=== PATIENT | female | born 1950 | race Caucasian/White ===

== ENCOUNTER 2016-06-18 08:21 | Inpatient (IN) | payer OTHER ==
[2016-06-14 10:20] LABS: MANUAL DIFF NEEDED? NO; URINE SOURCE VOIDED
[2016-06-14 10:23] LABS: BASO% 0.5 % (0.0-0.8); EOS# 0.17 X1000 (0.0-0.7); EOS% 1.2 % (0.0-10.0); HEMATOCRIT 41.1 % (37.0-47.0); HEMOGLOBIN 13.7 g/dL (12.0-16.0); IMM GRAN# 0.12 X1000 (0.0-0.04); IMM GRAN% 0.9 % (0.0-0.5); LYMPH# 4.09 X1000 (1.2-3.4); MCH 28.8 PG (27-31); MCHC 33.3 g/dL (33-37); MCV 86.3 FL (81-99); MONO# 1.23 X1000 (0.11-0.59); MONO% 8.7 % (1.7-9.3); NEUT% 59.7 % (42.2-75.2); PLT 407 X1000 (130-400); RBC 4.76 XMIL (4.2-5.4)
[2016-06-14 10:35] LABS: BILIRUBIN URINE NEGATIVE (NEGATIVE); BLOOD URINE NEGATIVE (NEGATIVE); CLARITY CLEAR (CLEAR); COLOR YELLOW; GLUCOSE URINE NEGATIVE (NEGATIVE); LEUKOCYTES URINE 2+ (NEGATIVE); NITRITE URINE NEGATIVE (NEGATIVE); PH URINE 6.5; PROTEIN URINE NEGATIVE (NEGATIVE); SP GRAVITY URINE 1.015; URINE MICROSCOPIC NEEDED? YES; UROBILINOGEN URINE NORMAL
[2016-06-14 10:37] LABS: URINE EPITHELIAL CELLS >10 /HPF (<10)
--- NOTE | 2016-06-15 12:23 | HISTORY AND PHYSICAL ---
DATE OF PLANNED PROCEDURE: 06/18/2016. PREOPERATIVE DIAGNOSIS: Uterine prolapse. SECONDARY DIAGNOSES: 1. Hypothyroidism. 2. Hypertension. 3. Adult-onset diabetes. CONDITION: Stable. HISTORY OF PRESENT ILLNESS: Ms. Art is a 66-year-old 4, para 4 who has experienced the above problems over the past few years. She has refused use of pessaries. States that she does not have any urinary difficulty, has been previously evaluated by Dr. Matta for the same problem, and mesh had been discussed; however, she is uncomfortable with this and desires to proceed with [place] tissue. PAST MEDICAL HISTORY: Significant for hypertension, hypothyroidism, and adult diabetes. PAST SURGICAL HISTORY: Tubal ligation. She has had 4 previous vaginal deliveries. ALLERGIES: She has no known drug allergies. MEDICATIONS: Norvasc 10 mg, Synthroid 50 mcg, metformin 500 extended release daily. FAMILY HISTORY: Noncontributory. SOCIAL HISTORY: She denies tobacco, alcohol, or drug use. PHYSICAL EXAMINATION: VITAL SIGNS: Blood pressure 128/82, weight 166, height 64, giving a BMI of 28.49. GENERAL: She is alert and cooperative, in no distress. NECK: Supple. LUNGS: Clear. HEART: Regular sinus rhythm. ABDOMEN: Soft. PELVIC: Uterine prolapse. EXTREMITIES: No cyanosis, clubbing, or edema in her extremities. ASSESSMENT: As above. PLAN: Vaginal hysterectomy with [place] tissue repair, uterosacral plication, and also tacking the pubocervical fascia back to the cuff, possibly posterior repair. The patient states understanding risks and desires to proceed.
[2016-06-18 07:40] LABS: URINE MICROSCOPIC NEEDED? NO; URINE SOURCE CATH
[2016-06-18 07:46] LABS: BILIRUBIN URINE NEGATIVE (NEGATIVE); BLOOD URINE NEGATIVE (NEGATIVE); CLARITY CLEAR (CLEAR); COLOR YELLOW; GLUCOSE URINE NEGATIVE (NEGATIVE); LEUKOCYTES URINE NEGATIVE (NEGATIVE); NITRITE URINE NEGATIVE (NEGATIVE); PROTEIN URINE NEGATIVE (NEGATIVE); UROBILINOGEN URINE NORMAL
[~2016-06-18 08:21] MED LIST: CLAVE SECONDARY SET 11953 ONE; D10W 500 ML ONE; DIPRIVAN 1% ONE; EPHEDRINE ONE; FENTANYL ONE; KEFZOL 1 GM/D5W 50 ML ONE; METROGEL-VAGINAL 0.75% GEL ONE; VERSED ONE; XYLOCAINE 1%/EPI 1:100,000 ONE
[2016-06-18] MEDS ORDERED: ZOFRAN IV PRN ×2 (08:33→10:24)
[2016-06-18] MEDS ORDERED: NORCO-10 PO PRN (08:33)
[2016-06-18] MEDS ORDERED: NORCO-5 PO PRN (08:33)
--- NOTE | 2016-06-18 09:07 | OPERATIVE NOTE ---
PROCEDURE DATE : 06/18/2016 PREOPERATIVE DIAGNOSIS: Uterine prolapse. POSTOPERATIVE DIAGNOSIS: Uterine prolapse. PROCEDURE PERFORMED: Vaginal hysterectomy with uterosacral plication and attachment of the pubocervical fascia to the uterosacrals. ESTIMATED BLOOD LOSS: 50 mL. SURGEON: Dr. Salvador Vasquez ADOLESCENT COORDINATOR: Dr. Can Matta ANESTHESIA: General endotracheal with Dr. Bertrand. POSITION: Dorsal lithotomy. FLUIDS: None replaced. PATHOLOGY: Uterus. FINDINGS: As above plus good urine output from both ureteral openings into the bladder per cystoscope. Min catheter in place and vag pack with Metrogel on it. INDICATION: Ms. Art is a 66-year-old 4, para 4, with the above diagnosis. She did not desire any obliterative procedures or mesh material. She desired using [place] tissue and the simplest procedures possible. I discussed the risk of failure. The patient states understanding. All questions answered. DESCRIPTION OF PROCEDURE: She was brought to the operating room and placed under general endotracheal anesthesia, prepped and draped in the dorsal lithotomy position. The bladder was drained of 300 mL of clear urine. A weighed speculum was placed. Anterior lip of the cervix was grasped with a Israel clamp, and a cut was made from 9 to 3 after injecting 10 mL of 0.25% Marcaine with epinephrine to hydrodissect the bladder off. Once the pubocervical space was entered, I had difficulty finding the peritoneum. So at this point, the posterior vagina was tented out with an Allis clamp, and a cut was made, entering the peritoneum posteriorly. The posterior cuff was then stitched with 2 interrupted stitches of 0 Vicryl popoff [id number]. A goose bill was placed. Dissection was completed anteriorly, and the peritoneum was entered anteriorly. Then using curved clamp, it was clamped, cut and sutured ligated until the specimen was removed. At this point, 2-0 Maxon stitches were placed in the uterosacrals from near to far. Then starting with the far, the needle which had been left in place, was put through the pubocervical fascia and then tied down. Then the middle one was put through the pubocervical fascia and then tied down. Then the third uterosacral plication stitch was put through the pubocervical fascia and was tied down. At this point, the cystoscopy was done using D10. No injury to the bladder was noted. No stitches were noted and good urine output from both ureters. So at this point, the cuff was closed with figure- of-eight stitches of 0 Polysorb. Min was placed, and the vagina was packed with the aforementioned pack. She was taken down from dorsal lithotomy, awakened and taken to the recovery room in stable condition.
[2016-06-18] MEDS ORDERED: PHENERGAN ONE (09:27)
[2016-06-18] MEDS ORDERED: MORPHINE PCA ONE (10:09)
[2016-06-18] MEDS ORDERED: BENADRYL IV PRN (10:24)
[2016-06-18] MEDS ORDERED: SODIUM CHLORIDE 0.9% INJ PRN (10:24)
[2016-06-18] MEDS ORDERED: NARCAN IV PRN (10:24)
[2016-06-18] MEDS: GLUCOPHAGE PO SCH (10:24)
[2016-06-18] MEDS ORDERED: HYDROXYZINE PO PRN (10:24)
[2016-06-18] MEDS ORDERED: MORPHINE PCA IV PRN (10:24)
[2016-06-18] MEDS ORDERED: LR 1,000 ML IV SCH (10:24)
[2016-06-18] MEDS ORDERED: NARCAN 0.4 MG in LR 1,000 ML IV PRN (10:24)
[2016-06-18] MEDS ORDERED: PHENERGAN IV PRN (10:24)
[2016-06-18] MEDS: PERIDEX MT SCH ×2 (10:25→20:48)
[2016-06-18] MEDS: COLACE PO SCH ×2 (10:26→20:47)
[2016-06-18] MEDS: LR 1,000 ML IV SCH ×2 (10:39→17:49)
[2016-06-18] MEDS: NORVASC PO SCH (10:52)
[2016-06-18] MEDS ORDERED: DECADRON ONE (14:00)
[2016-06-18] MEDS ORDERED: ZEMURON ONE (14:00)
[2016-06-18] MEDS ORDERED: BREVIBLOC ONE (14:00)
[2016-06-18] MEDS ORDERED: XYLOCAINE-MPF 2% ONE (14:00)
[2016-06-18] MEDS ORDERED: ROBINUL ONE (14:00)
[2016-06-18] MEDS ORDERED: NEOSTIGMINE ONE (14:00)
[2016-06-18] MEDS ORDERED: ZOFRAN ONE (14:00)
[2016-06-18] MEDS ORDERED: TORADOL ONE (14:00)
[2016-06-18] MEDS: TORADOL IV SCH ×2 (14:10→20:48)
[2016-06-18] MEDS: SYNTHROID PO SCH (17:13)
[2016-06-19] MEDS: LR 1,000 ML IV SCH (01:26)
[2016-06-19] MEDS: TORADOL IV SCH (02:54)
[2016-06-19 05:55] LABS: MANUAL DIFF NEEDED? NO
[2016-06-19 06:08] LABS: BASO% 0.1 % (0.0-0.8); EOS# 0.05 X1000 (0.0-0.7); EOS% 0.3 % (0.0-10.0); HEMATOCRIT 36.1 % (37.0-47.0); HEMOGLOBIN 11.6 g/dL (12.0-16.0); IMM GRAN# 0.09 X1000 (0.0-0.04); IMM GRAN% 0.5 % (0.0-0.5); LYMPH# 4.88 X1000 (1.2-3.4); MCH 28.3 PG (27-31); MCHC 32.1 g/dL (33-37); MONO# 1.88 X1000 (0.11-0.59); MPV 10.8 FL (7.4-10.4); NEUT% 63.1 % (42.2-75.2); PLT 384 X1000 (130-400)
[2016-06-19] MEDS: SYNTHROID PO SCH (06:28)
[2016-06-19] MEDS: GLUCOPHAGE PO SCH ×2 (07:24→09:09)
[2016-06-19] MEDS: PERIDEX MT SCH (09:08)
[2016-06-19] MEDS: COLACE PO SCH (09:08)
[2016-06-19] MEDS: NORVASC PO SCH (09:09)
[2016-06-19 11:18] VITALS: BP 142/70
[2016-06-19] MEDS ORDERED: TORADOL PO SCH (14:23)
--- NOTE | 2016-06-19 20:42 | DISCHARGE SUMMARY ---
ADMISSION DATE: 06/18/2016 DISCHARGE DATE: 06/19/2016 ADMISSION DIAGNOSIS: Uterine prolapse. DISCHARGE DIAGNOSIS: Uterine prolapse. PROCEDURE: Transvaginal hysterectomy with uterosacral plication. PHYSICIAN: Salvador Vasquez M.D. CONDITION: Stable. DIET: As tolerated. ACTIVITY: No heavy lifting. Frequent rest. MEDICATIONS: Deville for pain. She is to continue her medications for chronic medical problems of diabetes, hypothyroidism and hypertension. FOLLOWUP: She is to follow up in 2 weeks. HOSPITAL COURSE: Please refer to Ms. Art's H and P, and operative note. She is postop day 1 doing great, tolerating p.o. She had a bowel movement. She has voided without difficulty. She is desiring discharge. Her vital signs are stable. She is afebrile. Physical examination was within normal limits. Very little vaginal bleeding. We will discharge with above instructions.
== END 2016-06-19 12:30 | disposition other institution (70) | DRG 743 ==
LOC: P.WCMS 08:21 → P.WC 08:22 → P.WCMS 06-19 12:30 → P.WC 06-19 12:30
PROVIDERS: ADMIT Obstetrics & Gynecology; ATTEND Obstetrics & Gynecology
PROC: 0UT97ZZ Resection of Uterus, Via Natural or Artificial Opening (ICD-10-PCS; principal; 2016-06-18 06:53)
PROC: 0USGXZZ Reposition Vagina, External Approach (ICD-10-PCS; 2016-06-18 06:53)
DX: N81.4 Uterovaginal prolapse, unspecified (principal); I10 Essential (primary) hypertension; E03.9 Hypothyroidism, unspecified; E11.9 Type 2 diabetes mellitus without complications; Z79.899 Other long term (current) drug therapy; Z79.84 Long term (current) use of oral hypoglycemic drugs
CPT/HCPCS: 36415; 81001; 82948; 85025; 86850; 86900; 86901; 94799; J0690; J1100; J1885; J2250; J2270; J2405; J2550; J3010; J7120; J2710